=== PATIENT | male | born 1985 | race Hispanic/Latino ===

== ENCOUNTER 2017-11-13 10:14 | Emergency (ER) | payer MEDICAID ==
--- NOTE | 2017-11-13 13:17 | Emergency Department Report ---
HPI - General Chief Complaint: Upper Respiratory Infection Time Seen by Provider: 11/13/17 12:56 - HPI HPI: Mr. Joseph has hx of mental disability and seizure. he presents with cough. Multiple sick contacts at intermediate. Caregiver gave hx. Patient is nonverbal at baseline. ED Past Medical Hx - Past Medical History Previous Medical History?: Yes Hx Seizures: Yes Additional medical history: severe mental retardation - Social History Smoking Status: Never Smoker Substance Use Type: None ED Review of Systems ROS: Stated complaint: COUGH Other details as noted in HPI Comment: Unobtainable due to pts medical conditions Constitutional: denies: fever, malaise Physical Exam - Physical Exam Vital Signs: Vital Signs 11/13/17 10:46 Temperature 98.5 F Pulse Rate 83 Respiratory 18 Rate Blood Pressure 122/92 O2 Sat by Pulse 96 Oximetry Physical Exam: General: Well-appearing, no acute distress alert and attentive healthy well- appearing HEENT: Normocephalic atraumatic pupils equal round and reactive to light anicteric sclera Nose: no rhinorrhea Oropharynx: Moist mucous membranes Neck: supple, no meningismus Chest: Clear to auscultation bilaterally no rales rhonchi no wheezes Cardiac: Regular rate and rhythm no murmurs no rubs no gallops Abdomen: Soft nontender nondistended positive bowel sounds no guarding Extremities: No cyanosis no clubbing no edema Neuro: Moves all extremities 4, no gross deficits Psychiatric: Alert nonverbal ED Course Vital Signs 11/13/17 10:46 Temperature 98.5 F Pulse Rate 83 Respiratory 18 Rate Blood Pressure 122/92 O2 Sat by Pulse 96 Oximetry ED Medical Decision Making - Medical Decision Making History of mainly of cough dx: URI recommended supportive care Critical care attestation.: If time is entered above; I have spent that time in minutes in the direct care of this critically ill patient, excluding procedure time. ED Disposition Clinical Impression: Upper respiratory infection Disposition: DC-01 TO HOME OR SELFCARE Is pt being admited?: No Does the pt Need Aspirin: No Condition: Good Instructions: Upper Respiratory Infection (ED) Time of Disposition: 13:17
[2017-11-13 13:34] VITALS: BP 120/80
== END 2017-11-13 13:29 | disposition home or self-care (01) ==
LOC: ED 10:14
DX: J06.9 Acute upper respiratory infection, unspecified (principal)
CPT/HCPCS: 99282